=== PATIENT | male | born 1965 | race Two or more races ===

== ENCOUNTER 2018-01-09 19:38 | Emergency (ER) | payer SELFPAY ==
[~2018-01-09] VITALS: Ht 165.1 cm; Wt 81.6 kg
--- NOTE | 2018-01-09 19:40 | Emergency Room Report ---
History of Present Illness General Chief Complaint: Altered Level of Consciousness Source: Patient, EMS (Thony Dumont MD) Present Illness HPI Patient is a 52-year-old male brought in by EMS after increased altered level consciousness. Patient was found in an apartment complex. Patient states he was drinking tequila. The patient history is markedly limited by patient's mental status. (Thony Dumont MD) Allergies: Coded Allergies: No Known Allergies (Unverified , 01/09/18) Patient History Past Medical History: see triage record Reviewed Nursing Documentation: PMH: Agreed; PSxH: Agreed (Thony Dumont MD) Nursing Documentation-PMH Past Medical History Deferred: Pt Cognitively Impaired (Thony Dumont MD) Review of Systems All Other Systems: limited - by mental status and poor cooperation (Thony Dumont MD) Physical Exam Vital Signs Date Time Temp Pulse Resp B/P (MAP) Pulse Ox O2 Delivery O2 Flow Rate FiO2 01/09/18 19:35 97.6 76 16 132/87 96 Room Air 97.5 Sp02 EP Interpretation: reviewed, normal General Appearance: normal inspection, well appearing, no apparent distress, alert Head: atraumatic ENT: normal ENT inspection, hearing grossly normal, normal voice Neck: normal inspection, full range of motion, supple, no bony tend Respiratory: normal inspection, lungs clear, normal breath sounds, no respiratory distress, no retraction, no wheezing Cardiovascular #1: regular rate, rhythm, no edema Gastrointestinal: normal inspection, normal bowel sounds, non tender, soft, no guarding, no hernia Genitourinary: no CVA tenderness Musculoskeletal: normal inspection, back normal, normal range of motion Neurologic: normal inspection, alert, oriented x3, responsive, lead dental assistant III-XII nml as tested, other - slurred speech, ataxia Psychiatric: normal inspection, judgement/insight normal, mood/affect normal Skin: normal inspection, normal color, no rash (Thony Dumont MD) Medical Decision Making Diagnostic Impression: Primary Impression: Alcohol intoxication ER Course Patient presented for altered mental status. Differential diagnosis included but was not limited to alcohol intoxication, ischemic stroke, subarachnoid hemorrhage, hypoglycemia, spinal cord injury, neurodegenerative disorder, urinary tract infection, hypoxemia. (Thony Dumont MD) ER Course Please refer to the initial note for the initial history , exam and evaluation Patient was pending further sobering He was better and ambulatory he did complain of a headache Therefore a CT head was obtained which was negative Continued to rest And after a more ambulatory was able to go home (Meliza Estrella DO) CT/MRI/US Diagnostic Results CT/MRI/US Diagnostic Results : Impression CT head no acute disease (Meliza Estrella DO) Last Vital Signs Date Time Temp Pulse Resp B/P (MAP) Pulse Ox O2 Delivery O2 Flow Rate FiO2 01/09/18 19:35 97.6 76 16 132/87 96 Room Air 97.5 (Thony Dumont MD) Status: improved (Meliza Estrella DO) Disposition: HOME, SELF-CARE Condition: Improved Additional Instructions: Patient is provided with the discharge instructions notified to follow up with primary doctor in the next 2-3 days otherwise return to the er with any worsening symptoms. Please note that this report is being documented using [employer] technology. This can lead to erroneous entry secondary to incorrect interpretation by the dictating instrument. Thony Dumont MD January 09, 2018 19:40 Meliza Estrella DO January 10, 2018 02:04
[2018-01-09 19:42] VITALS: BP 136/72
[2018-01-09 20:51] VITALS: BP 128/77
[2018-01-09 22:20] VITALS: BP 144/82
[2018-01-10 01:29] VITALS: BP 121/68
[2018-01-10 02:29] VITALS: BP 127/78
[2018-01-10 03:51] VITALS: BP 121/68
[2018-01-10 05:16] VITALS: BP 128/76
[2018-01-10 06:18] VITALS: BP 127/70
--- NOTE | 2018-01-10 10:04 | Diagnostic Imaging Report ---
Indication: Headache Technique: Contiguous 5 mm thick transaxial imaging of the head obtained in a Siem[employer] Sensation [address] scanner. Soft tissue and bone windows generated. Automatic Exposure Control was utilized. Total Dose length Product (DLP): 1351.[address] Dose Index Volume (CTDIvol): 70.38 mGy Comparison: none Findings: The size and configuration of the cortical sulci, basal cisterns, and ventricles are within normal limits for age. There is no mass effect, midline shift, or edema identified. There is no evidence of acute hemorrhage or abnormal intra-axial or extra-axial fluid collections. The bones and soft tissues are unremarkable. Impression: No mass effect, edema or acute bleed. [facility] has communicated the preliminary results to the Emergency Department. Their findings are largely concordant with this report. The CT scanner at [facility] is accredited by the [employer] and the scans are performed using dose optimization techniques as appropriate to a performed exam including Automatic Exposure control.
== END 2018-01-10 06:20 | disposition home or self-care (01) ==
LOC: EDBD 19:38 → EMR 20:21
DX: F10.129 Alcohol abuse with intoxication, unspecified (principal); R41.82 Altered mental status, unspecified
CPT/HCPCS: 70450; 99284